=== PATIENT | male | born 1975 | race Caucasian/White ===

== ENCOUNTER 2016-12-03 14:09 | Emergency (ER) | payer SELFPAY ==
[~2016-12-03] VITALS: Ht 188 cm; Wt 75.0 kg
[~2016-12-03 14:09] MED LIST: LORTA5 PO; MOBI15TA PO
[2016-12-03 14:11] VITALS: BP 180/102; PULSE 112; RESP 19; TEMP 98.8; O2SAT 99
[2016-12-03] MEDS ORDERED: LORazepam 2 MG/ML VIAL IV PUSH ONE (15:45)
[2016-12-03] MEDS ORDERED: LABETALOL HCL 100 MG/20 ML VIAL IV PUSH ONE (15:45)
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
[2016-12-03 16:10] VITALS: BP 184/122
--- NOTE | 2016-12-03 16:18 | RADRPT ---
EXAM DATE/TIME: 12/03/2016 15:48 [facility] COMPARISON: No previous studies available for comparison. INDICATIONS : Fall, left 4th digit pain. MEDICAL HISTORY : None. SURGICAL HISTORY : None. ENCOUNTER: Initial ACUITY: 1 day PAIN SCORE: 8/10 LOCATION: Left 4th digit FINDINGS: 3 views of the left hand demonstrate no fracture or dislocation. Mineralization is within normal limi ts. There is soft tissue swelling of the proximal fourth digit. No radiopaque foreign body is seen. CONCLUSION: Soft tissue swelling of the proximal fourth digit. No fracture is visualized. Osiel George MD on December 03, 2016 at 16:15 Board Certified Radiologist. This report was verified electronically.
--- NOTE | 2016-12-03 16:20 | RADRPT ---
EXAM DATE/TIME: 12/03/2016 15:52 [facility] COMPARISON: CHEST SINGLE AP, April 16, 2013, 21:44. INDICATIONS : Fall, bilateral rib pain. MEDICAL HISTORY : None. SURGICAL HISTORY : None. ENCOUNTER: Initial ACUITY: 1 day PAIN SCORE: 8/10 LOCATION: Bilateral chest FINDINGS: A single view of the chest demonstrates the lungs to be symmetrically aerated without evidence of mas s, infiltrate or effusion. The cardiomediastinal contours are unremarkable. Osseous structures are intact. CONCLUSION: No acute disease. Osiel Hess MD on December 03, 2016 at 16:18 Board Certified Radiologist. This report was verified electronically.
[2016-12-03 16:38] VITALS: BP 143/92; PULSE 67; RESP 20; O2SAT 96
[2016-12-03 16:52] LABS: AUTOMATED NEUTROPHIL # 2.8 TH/MM3 (1.8-7.7); BASOPHIL % 0.9 % (0.0-2.0); EOSINOPHIL # 0.1 TH/MM3 (0-0.4); HEMATOCRIT 44.3 % (39.0-51.0); HEMO FLAGS DIFF FINAL; LYMPH % 36.5 % (9.0-44.0); LYMPHOCYTE # 1.9 TH/MM3 (1.0-4.8); MEAN CELL VOLUME 87.7 FL (80.0-100.0); MEAN CORPUSCULAR HEMOGLOBIN 30.1 PG (27.0-34.0); MEAN CORPUSCULAR HGB CONC 34.3 % (32.0-36.0); MONO % 7.7 % (0.0-8.0); NEUT % 53.9 % (16.0-70.0); PLATELET COUNT 240 TH/MM3 (150-450); RED BLOOD COUNT 5.05 MIL/MM3 (4.50-5.90); RED CELL DISTRIBUTION WIDTH 13.5 % (11.6-17.2); WHITE BLOOD COUNT 5.2 TH/MM3 (4.0-11.0)
[2016-12-03 17:55] LABS: BICARBONATE 27.5 MEQ/L (21.0-32.0)
--- NOTE | 2016-12-03 19:56 | EKG ---
Date Performed: 12/03/2016 Time Performed: 14:31:43 PTAGE: 41 years EKG: Sinus rhythm WITH SHORT OR INTERVAL POSSIBLE LEFT ATRIAL ENLARGEMENT POSSIBLE LEFT VENTRICULAR HYPERTROPHY NONSPE CIFIC T-WAVE ABNORMALITY ABNORMAL ECG PREVIOUS TRACING : 04/17/2013 03.48 Compared to prior tracing no significant change DOCTOR: Efren Pa Interpretating Date/Time 12/03/2016 19:54:42
== END 2016-12-03 17:58 | disposition left against medical advice (07) ==
LOC: NEPC 14:09
DX: Z76.5 Malingerer [conscious simulation] (principal); R94.31 Abnormal electrocardiogram [ECG] [EKG]; Z53.21 Procedure and treatment not carried out due to patient leaving prior to being seen by health care provider; F41.9 Anxiety disorder, unspecified; Z72.0 Tobacco use
CPT/HCPCS: 71010; 73130; 80048; 85025; 93005; 96374; 96375; 99285; J2060